=== PATIENT | female | born 1995 | race Caucasian/White ===

== ENCOUNTER 2018-09-26 00:16 | Inpatient (IN) | payer MEDICAID, OTHER ==
[2018-09-26] VITALS (66 sets, daily range): BP systolic 88–142; BP diastolic 46–88
[~2018-09-26] VITALS: Ht 158.8 cm; Wt 88.0 kg
[~2018-09-26 00:16] MED LIST: ACYC200C5 PO; IBUP-1773 PO; PREN1TAB86 PO
--- NOTE | 2018-09-26 00:25 | NUR ---
KAY APARICIO presented to unit via wheelchair from ED, accompanied by s.o., with c/o CONTRACTIONS,WATER BROKE. KAY APARICIO weighed, gowned, voided, and to bed. EFHM and TOCO applied, VS taken. KAY APARICIO oriented to bed controls, call light, TV, heat, and A/C controls.
[2018-09-26] MEDS ORDERED: buprenorphine PO (00:40)
[2018-09-26] MEDS ORDERED: SUFENTA 0.6MCG/ML BUPIVA 0.125 100 ML ONE (01:05)
[2018-09-26] MEDS: D5 LR IV SOLUTION 1,000 ML IV SCH ×2 (01:05→08:46)
[2018-09-26] MEDS ORDERED: BUPIVACAINE 0.25% 30 ML (SENSORCAINE) VIAL ONE (01:06)
[2018-09-26] MEDS ORDERED: fentaNYL INJECTION 100 MCG/2 ML AMP ONE (01:06)
[2018-09-26] MEDS ORDERED: LIDOCAINE PF 2% 5 ML (XYLOCAINE) VIAL ONE (01:06)
[2018-09-26] MEDS ORDERED: D5 LR IV SOLUTION 1,000 ML IV ONE (01:10)
[2018-09-26] MEDS ORDERED: MINERAL OIL CONCENTRATE 99.9% 15 ML UDC TOP PRN (01:15)
[2018-09-26 01:21] LABS: BASOPHILS % (AUTO) 0 % (0-10); EOSINOPHILS # (AUTO) 0.1 10^3/uL (0.0-0.3); EOSINOPHILS % (AUTO) 1 % (0-10); HEMATOCRIT 33 % (35-52); HEMOGLOBIN 10.8 G/DL (11.5-16.0); LYMPHOCYTES # (AUTO) 1.9 X 10^3 (1.0-4.0); LYMPHOCYTES % (AUTO) 14 % (12-44); MEAN CORPUSCULAR HEMOGLOBIN 25 PG (25-34); MEAN CORPUSCULAR HGB CONC 33 G/DL (32-36); MEAN CORPUSCULAR VOLUME 78 FL (80-99); MEAN PLATELET VOLUME 11.3 FL (7.4-10.4); MONOCYTES % (AUTO) 8 % (0-12); NEUTROPHILS # (AUTO) 10.4 X 10^3 (1.8-7.8); NEUTROPHILS % (AUTO) 77 % (42-75); PLATELET COUNT 194 10^3/uL (130-400); RED CELL DISTRIBUTION WIDTH 16.3 % (10.0-14.5); WHITE BLOOD COUNT 13.4 10^3/uL (4.3-11.0)
[2018-09-26] MEDS ORDERED: LACTATED RINGERS 1,000 ML IV ONE ×2 (01:38)
[2018-09-26] MEDS ORDERED: EPIDURAL (SUFENTA 0.6MCG/ML BUPIVA 0.125%) 100 ML BAG EPI PRN (01:45)
[2018-09-26] MEDS ORDERED: ONDANSETRON 4 MG/2 ML (SDV) Z0FRAN IV PRN (01:45)
[2018-09-26] MEDS ORDERED: NALOXONE 0.4 MG/ML 1 ML (NARCAN) VIAL IV PRN (01:45)
[2018-09-26 03:05] LABS: AMPHETAMINE SCREEN, URINE NEGATIVE (NEGATIVE); BARBITURATE SCREEN URINE NEGATIVE (NEGATIVE); BENZODIAZEPINES SCREEN URINE NEGATIVE (NEGATIVE); CANNABINOID SCREEN, URINE POSITIVE (NEGATIVE); COCAINE SCREEN URINE NEGATIVE (NEGATIVE); METHADONE STAT POSITIVE (NEGATIVE); METHAMPHETAMINE SCREEN URINE S NEGATIVE (NEGATIVE); OPIATE SCREEN URINE NEGATIVE (NEGATIVE); OXYCODONE STAT NEGATIVE (NEGATIVE); PROPOXYPHENE STAT NEGATIVE (NEGATIVE); TRICYCLIC ANTIDEPRESSANTS SCRE NEGATIVE (NEGATIVE)
[2018-09-26] MEDS ORDERED: CATHETER FLUSH 10 ML SYR IV SCH ×2 (06:00→14:00)
[2018-09-26] MEDS ORDERED: OXYTOCIN/NORMAL SALINE 500 ML IV SCH ×2 (09:38→13:16)
--- NOTE | 2018-09-26 13:14 | History & Physical-OB ---
OB - Chief Complaint & HPI Date/Time Date of Admission: Date of Admission: Sep 26, 2018 at 01:00 Date seen by a Provider: Sep 26, 2018 Time Seen by a Provider: 09:12 Chief Complaint/History OB-Reason for Admission/Chief: Onset of Labor Hx : 3 Hx Para: 1 Expected Date of Delivery: Oct 03, 2018 Gestational Age in Weeks: 39 Gestational Age in Days: 1 Other reason for admission: Ctxs that started around midnight. Denies any LOF or vaginal bleeding Allergies and Home Medications Allergies Coded Allergies: iodine (Verified Allergy, Severe, ANAPHYLAXIS, 12/31/15) Home Medications Vit W-Ca,Fe,FA(<1 mg) 1 Each Tablet, 1 EACH PO DAILY, (Reported) [buprenorphine] , 1.5 CAP PO DAILY, (Reported) Patient Home Medication List Home Medication List Reviewed: Yes OB - History Hx of Present Care: Yes Ultrasounds: Normal mid trimester US Obstetrical Complications: None Medical Complications: Other (Substance abuse) Information Induced Hypertension: No Maternal Gestational Diabetes: No Hemorrhage: No Obstetrical History Hx : 3 Hx Para: 1 Hx # Term Pregnancies: 1 Delivery History Hx Blood Disorders: No Adverse Rxn to Tranfusion: No Patient Past Medical History Opiate addiction Genital HSV Type 1 Hx depression PSH: appendectomy Social History/Family History HIV/AIDS: No Recent Infectious Disease Expo: No Alcohol Use: Denies Use Recreational Drug Use: Yes Immunizations Tetanus Booster (TDap): Less than 5yrs Date of Influenza Vaccine: Nov 12, 2015 Rubella: immune RPR/VDRL: Negative GBS Status: Negative HBsAG: Negative OB - Admission Exam Physical Exam Vitals: Vital Signs 09/26/18 09/26/18 09/26/18 02:35 10:50 11:51 Temp 95.0 Pulse 72 Resp 18 B/P (MAP) 108/51 (70) Pulse Ox 100 O2 Delivery Room Air HEENT: NCAT Heart: Rhythm Normal Lungs: Clear Abdomen: Gravid Cervical Dilatation: 5cm Effacement: 75% Station: -1 Membranes: Ruptured Amniotic Fluid: Thin Meconium Heart Rate: 130's Accelerations: Accelerations Present Decelerations: Variable Decelerations Labs Laboratory Tests Test 09/26/18 01:05 09/26/18 02:40 Range/Units White Blood Count 13.4 H 4.3-11.0 10^3/uL Red Blood Count 4.25 L 4.35-5.85 10^6/uL Hemoglobin 10.8 L 11.5-16.0 G/DL Hematocrit 33 L 35-52 % Mean Corpuscular Volume 78 L 80-99 FL Mean Corpuscular Hemoglobin 25 25-34 PG Mean Corpuscular Hemoglobin Concent 33 32-36 G/DL Red Cell Distribution Width 16.3 H 10.0-14.5 % Platelet Count 194 130-400 10^3/uL Mean Platelet Volume 11.3 H 7.4-10.4 FL Neutrophils (%) (Auto) 77 H 42-75 % Lymphocytes (%) (Auto) 14 12-44 % Monocytes (%) (Auto) 8 0-12 % Eosinophils (%) (Auto) 1 0-10 % Basophils (%) (Auto) 0 0-10 % Neutrophils # (Auto) 10.4 H 1.8-7.8 X 10^3 Lymphocytes # (Auto) 1.9 1.0-4.0 X 10^3 Monocytes # (Auto) 1.0 0.0-1.0 X 10^3 Eosinophils # (Auto) 0.1 0.0-0.3 10^3/uL Basophils # (Auto) 0.0 0.0-0.1 10^3/uL Urine Opiates Screen NEGATIVE NEGATIVE Urine Oxycodone Screen NEGATIVE NEGATIVE Urine Methadone Screen POSITIVE H NEGATIVE Urine Propoxyphene Screen NEGATIVE NEGATIVE Urine Barbiturates Screen NEGATIVE NEGATIVE Ur Tricyclic Antidepressants Screen NEGATIVE NEGATIVE Urine Phencyclidine Screen NEGATIVE NEGATIVE Urine Amphetamines Screen NEGATIVE NEGATIVE Urine Methamphetamines Screen NEGATIVE NEGATIVE Urine Benzodiazepines Screen NEGATIVE NEGATIVE Urine Cocaine Screen NEGATIVE NEGATIVE Urine Cannabinoids Screen POSITIVE H NEGATIVE OB - Assessment/Plan/Diagnosis Assessment Assessment: active labor Admission Dx Labor Admission Status: Inpatient Order (span 2 midnights) Reason for Inpatient Admission: labor and dellvery Plan Plan: Expectant Management Other Plan 23 yo @ 39.1 wga here for contractions and found to be in active labor Plan - GBS Neg - AROM 0912 - Augment with Pitocin Copy Copies To 1: KELLY SALDANA MD, HOLLY R MD Sep 26, 2018 13:14
[2018-09-26] MEDS ORDERED: TETANUS,DIPTH,PERTUSS P/F (BOOSTRIX) 0.5 ML VIAL IM ONE (13:30)
[2018-09-26] MEDS ORDERED: MEASLES,MUMPS,RUBELLA 1 EA INJ SQ ONE (13:30)
[2018-09-26] MEDS ORDERED: BENZOCAINE/MENTHOL (DERMOPLAST) 56 ML CAN TP PRN (13:30)
[2018-09-26] MEDS ORDERED: WITCH HAZEL(TUCKS) 40 EA JAR TOP PRN (13:30)
--- NOTE | 2018-09-26 13:30 | OB Labor & Delivery Record ---
Vag Delivery Note Vag Delivery Note Date of Delivery: 09/26/18 Preoperative Diagnosis: Kyara Loza is a (23 /Para 3 / 1,Gestational Age (wks)39 here for active labor Postoperative Diagnosis: Same Surgeon: KELLY SALDANA Field Broomer: None Anesthesia: Epidural Delivery Type: @ 1246 Findings: Viable male infant, apgars 7/8, weight 8#, 3630 grams Lacerations: skin abrasions Intact placenta with 3 vessel cord. No nuchal cord, body cord or shoulder dystocia Estimated Blood Loss: 125 ml Complications: None Condition: Stable Description of Procedure: The patient is a 23 year old female who presented in active labor. She was admitted and informed consent was obtained. Her labor course was remarkable for meconium upon AROM. She progressed to complete dilatation and began to push. She was then set up for delivery. The 's head was delivered atraumatically in the KOTA position. Left anterior shoulder dystocia that resolved with Jacqueline and suprapubic pressure. The shoulders and remainder of the 's body were then delivered. Upon delivery, the head was held below the level of the perineum and the mouth and nares were bulb suctioned. The cord was doubly clamped and cut and the infant was handed off to the pediatric staff. An intact placenta with 3-vessel cord delivered via Chintan and there was found to be minimal bleeding.~ Vigorous fundal massage was performed and the fundus was found to be firm. IV oxytocin was given. Examination of the vagina and perineum revealed a skin abrasion. Following the repair, sponge, instrument and needle counts were correct. Mom in stable condition in the labor suite. Baby to nursery for respiratory distress. Vitals - Labs Vital Signs - I&O Vital Signs Date Time Temp Pulse Resp B/P (MAP) Pulse Ox O2 Delivery O2 Flow Rate FiO2 09/26/18 11:51 72 18 108/51 (70) Room Air 09/26/18 11:35 74 18 88/50 (63) Room Air 09/26/18 11:20 73 18 93/49 (64) Room Air 09/26/18 11:06 72 18 89/46 (60) Room Air 09/26/18 10:50 95.0 65 18 100/50 (67) Room Air 09/26/18 10:35 58 18 118/66 (83) Room Air 09/26/18 10:20 60 18 120/59 (79) Room Air 09/26/18 10:04 65 18 121/67 (85) Room Air 09/26/18 09:49 58 18 115/68 (84) Room Air 09/26/18 09:34 57 18 114/66 (82) Room Air 09/26/18 09:19 61 18 119/72 (88) Room Air 09/26/18 09:04 57 18 118/64 (82) Room Air 09/26/18 08:50 95.4 69 18 117/65 (82) Room Air 09/26/18 08:36 57 18 118/74 (89) Room Air 09/26/18 08:20 62 18 117/71 (86) Room Air 09/26/18 08:06 62 18 119/72 (88) Room Air 09/26/18 07:50 61 18 118/69 (85) Room Air 09/26/18 07:34 68 18 121/72 (88) Room Air 09/26/18 07:19 60 18 120/71 (87) Room Air 09/26/18 07:05 60 18 119/67 (84) Room Air 09/26/18 06:50 62 18 120/70 (87) Room Air 09/26/18 06:35 55 18 119/66 (83) Room Air 09/26/18 06:20 59 18 117/71 (86) Room Air 09/26/18 06:05 61 18 119/73 (88) Room Air 09/26/18 05:50 56 18 122/64 (83) Room Air 09/26/18 05:35 56 18 121/66 (84) Room Air 09/26/18 05:20 60 18 121/65 (83) Room Air 09/26/18 05:05 56 18 121/69 (86) Room Air 09/26/18 04:50 62 18 121/71 (88) Room Air 09/26/18 04:35 62 18 123/69 (87) Room Air 09/26/18 04:20 65 18 128/72 (90) Room Air 09/26/18 04:05 65 18 122/71 (88) Room Air 09/26/18 03:50 59 18 127/72 (90) Room Air 09/26/18 03:35 56 18 125/74 (91) Room Air 09/26/18 03:20 58 18 126/74 (91) Room Air 09/26/18 03:05 62 18 126/72 (90) Room Air 09/26/18 02:45 69 18 127/73 (91) Room Air 09/26/18 02:40 58 18 131/74 (93) Room Air 09/26/18 02:35 70 18 128/75 (92) 100 Room Air 09/26/18 02:30 66 18 125/68 (87) 98 Room Air 09/26/18 02:25 66 18 120/68 (85) 98 Room Air 09/26/18 02:20 65 18 127/74 (91) 99 Room Air 09/26/18 02:11 69 18 132/59 (83) 100 Room Air 09/26/18 02:05 67 18 131/75 (93) 97 Room Air 09/26/18 02:00 97.0 62 18 139/85 (103) 100 Room Air 09/26/18 01:56 75 18 131/67 (88) 100 Room Air 09/26/18 01:50 74 18 128/75 (92) 99 Room Air 09/26/18 01:46 71 18 132/74 (93) 99 Room Air 09/26/18 01:41 77 18 135/63 (87) 98 Room Air 09/26/18 01:34 75 18 137/66 (89) 98 Room Air 09/26/18 01:30 79 18 131/64 (86) 99 Room Air 09/26/18 01:26 85 18 142/63 (89) 100 Room Air 09/26/18 01:22 91 18 140/74 (96) 100 Room Air 09/26/18 00:28 81 18 133/80 (97) I & O 09/26/18 07:00 Intake Total 1000 ml Balance 1000 ml Labs Laboratory Tests 09/26/18 01:05: White Blood Count 13.4H, Red Blood Count 4.25L, Hemoglobin 10.8L, Hematocrit 33L , Mean Corpuscular Volume 78L, Mean Corpuscular Hemoglobin 25, Mean Corpuscular Hemoglobin Concent 33, Red Cell Distribution Width 16.3H, Platelet Count 194, Mean Platelet Volume 11.3H, Neutrophils (%) (Auto) 77H, Lymphocytes (%) (Auto) 14, Monocytes (%) (Auto) 8, Eosinophils (%) (Auto) 1, Basophils (%) (Auto) 0, Neutrophils # (Auto) 10.4H, Lymphocytes # (Auto) 1.9, Monocytes # (Auto) 1.0, Eosinophils # (Auto) 0.1, Basophils # (Auto) 0.0 09/26/18 02:40: Urine Opiates Screen NEGATIVE, Urine Oxycodone Screen NEGATIVE, Urine Methadone Screen POSITIVEH, Urine Propoxyphene Screen NEGATIVE, Urine Barbiturates Screen NEGATIVE, Ur Tricyclic Antidepressants Screen NEGATIVE, Urine Phencyclidine Screen NEGATIVE, Urine Amphetamines Screen NEGATIVE, Urine Methamphetamines Screen NEGATIVE, Urine Benzodiazepines Screen NEGATIVE, Urine Cocaine Screen NEGATIVE, Urine Cannabinoids Screen POSITIVEH KELLY SALDANA MD Sep 26, 2018 13:30
[2018-09-26] MEDS ORDERED: IBUPROFEN 600 MG (MOTRIN) TAB PO ONE (14:37)
--- NOTE | 2018-09-26 17:54 | Discharge Summary ---
Diagnosis/Chief Complaint Date of Admission Sep 26, 2018 at 01:00 Date of Discharge 09/26/2018 Admission Diagnosis Admission Diagnosis Active Labor Opoid addiction in remission, currently treated 39 week gestation Discharge Diagnosis See Above Discharge Summary-Simple/Stand Procedures AROM Epidural Placement Discharge Physical Examination Allergies: Coded Allergies: iodine (Verified Allergy, Severe, ANAPHYLAXIS, 12/31/15) Vitals & I&Os Vital Sign - Last 12Hours Date Time Temp Pulse Resp B/P (MAP) Pulse Ox O2 Delivery O2 Flow Rate FiO2 09/26/18 15:12 62 18 123/68 (86) Room Air 09/26/18 13:19 96.3 09/26/18 02:35 100 General Appearance: Alert, Oriented X3, Cooperative, No Acute Distress HEENT: Mucous Memb Moist/Eleva Respiratory: Clear to Auscultation, Normal Air Movement Cardiovascular: Regular Rate, No Murmurs Abdominal: Normal Bowel Sounds, Soft, Other (Fundus below umbilicus) Extremities: No Edema, No Tenderness/Swelling Skin: No Breakdown Neuro: Strength at 5/5 X4 Ext, Sensation Intact, Cranial Nerves 3-12 NL Psych/Mental Status: Mental Status NL, Mood NL Hospital Course Was the Problem List Reviewed?: Yes See final discharge diagnosis. Discussion & Recommendations 23 yo G3 now P2 that delivered term male via with meconium at [facility]. Mother currently in remission for opoid addiction and taking Suboxone daily and follows consistently with Dr Sanchez thru [facility] outpatient treatment. Will discharge mother early due to transfer to NICU. Plan for mother and infant to follow up with Dr Mas at [facility] in [place]. Discharge Condition at discharge stable Instructions to patient/family Please see electronic discharge instructions given to patient. Discharge Medications Reviewed and agree with Discharge Medication list on patient's Discharge Instruction sheet Clinical Quality Measures DVT/VTE Risk/Contraindication: Risk Factor Score Per Nursin RFS Level Per Nursing on Admit: 1=Low/No VTE PPX Copy Copies To 1: KELLY MAS MD, HOLLY R MD Sep 26, 2018 17:53
[2018-09-26] MEDS ORDERED: IBUP-844 PO (17:55)
--- NOTE | 2018-09-26 17:59 | Discharge Instructions ---
Discharge Inst-[facility] Reconcile Patient Problems Problems Reviewed?: Yes Depart Medications New, Converted or Re-Newed RX: Transmitted to Pharmacy New Medications: Ibuprofen (Ibu) 600 Mg Tablet 600 MG PO Q6HR, #60 TAB Continued Medications: [buprenorphine] () 1.5 CAP PO DAILY Vit W-Ca,Fe,FA(<1 mg) ( Vitamins) 1 Each Tablet 1 EACH PO DAILY, TAB Follow Up/Instructions Goal/Follow Up: [address] Mas for post Activity Activity: Activity as Tolerated Driving Instructions: You May Drive NO SMOKING: NO SMOKING Nothing Inside Vagina: No Douching, No [place], No Tampons Diet Discharge Diet: No Restrictions Symptoms to Report to : Bleeding Excessive, Pain Increased, Fever Over 101 Degrees F, Shortness of Breath For Any Problems or Questions: Contact Your Physician Copies To 1: KELLY MAS MD, HOLLY R MD Sep 26, 2018 17:59
[2018-09-26] MEDS ORDERED: IBUPROFEN 600 MG (MOTRIN) TAB PO SCH (18:00)
--- NOTE | 2018-09-26 18:00 | NUR ---
IV DC'd, tip intact. Patient off unit with Significant Other.
--- NOTE | 2018-09-26 18:40 | NUR ---
Discharge instructions reviewed with patient both written and verbally. Patient verbalizes understanding and denies any current questions or concerns at this time. Supplies provided to dismissal.
--- NOTE | 2018-09-26 19:04 | NUR ---
PT DISCHARGED FROM [facility] TO [facility] VIA W/C IN STABLE CONDITION ACC BY THIS RN AND S/O.
[2018-09-26] MEDS ORDERED: DOCUSATE SODIUM 100 MG (COLACE) CAP PO SCH (21:00)
--- NOTE | 2018-09-27 11:03 | Anesthesia-Regional Post-Op ---
Regional Patient Condition Mental Status: Alert, Oriented x3 Circulation: Same as Pre-Op Headache: Absent Sensation: Full Recovery Motor Block: Absent Post Op Complications Complications None Follow Up Care/Instructions Patient Instructions None needed. Anesthesia/Patient Condition Patient is doing well, no complaints, stable vital signs, no apparent adverse anesthesia problems. No complications reported per nursing. USMAN WANG CRNA Sep 27, 2018 11:03
== END 2018-09-26 19:04 | disposition home or self-care (01) | DRG 807 ==
LOC: WSo 00:16 → LDRP 00:18 → WSo 00:59 → LDRP 01:00
PROVIDERS: ADMIT Family Medicine; ATTEND Family Medicine
PROC: 10E0XZZ Delivery of Products of Conception, External Approach (ICD-10-PCS; principal; 2018-09-26)
DX: O99.324 Drug use complicating childbirth (principal); F11.21 Opioid dependence, in remission; O66.0 Obstructed labor due to shoulder dystocia; O77.0 Labor and delivery complicated by meconium in amniotic fluid; Z37.0 Single live birth; Z3A.39 39 weeks gestation of pregnancy
CPT/HCPCS: 36415; 80306; 85025; 86850; 86900; 86901; 99212